=== PATIENT | male | born 1995 | race American Indian/Alaskan Native ===

== ENCOUNTER 2019-04-16 12:21 | Emergency (ER) | payer SELFPAY ==
[2019-04-16 12:24] VITALS: BP 147/97
--- NOTE | 2019-04-16 12:41 | Event Note ---
ED Screening Note ED Screening Note: Mr. Greco has laceration on right arm. unknown tetanus status This initial assessment/diagnostic orders/clinical plan/treatment(s) is/are subject to change based on patients health status, clinical progression and re- assessment by fellow clinical providers in the ED. Further treatment and workup at subsequent clinical providers discretion. Patient/guardian urged not to elope from the ED as their condition may be serious if not clinically assessed and managed. Initial orders include: need laceration repair
--- NOTE | 2019-04-16 19:43 | Emergency Department Report ---
- General Chief Complaint: Extremity Injury, Upper Stated Complaint: RT ARM CUT Time Seen by Provider: 04/16/19 19:10 Source: patient Mode of arrival: Ambulatory Limitations: No Limitations - History of Present Illness Initial Comments: 23-year-old -[place] male presents to the emergency room for right bicep laceration on a fence at approximate 11 AM. Patient reports he needs a tetanus. Patient denies any past medical history currently takes no medications on a daily basis and has no known drug allergies -: This morning Time: 11:00 Location: other (Right bicep) Extremity Location: Right: Arm (Lateral bicep) Place: outdoors Patient Tetanus UTD: No Context: sharp object use Associated Symptoms: none Treatments Prior to Arrival: bandage - Related Data Allergies Allergy/AdvReac Type Severity Reaction Status Date / Time No Known Allergies Allergy Unverified 04/16/19 12:22 ED Review of Systems ROS: Stated complaint: RT ARM CUT Other details as noted in HPI Comment: All other systems reviewed and negative ED Past Medical Hx - Past Medical History Previous Medical History?: No - Surgical History Past Surgical History?: No - Social History Smoking Status: Current Every Day Smoker Substance Use Type: Alcohol, Marijuana ED Physical Exam - General Limitations: No Limitations General appearance: alert, in no apparent distress - Head Head exam: Present: atraumatic, normocephalic - Eye Eye exam: Present: normal appearance, EOMI - ENT ENT exam: Present: mucous membranes moist - Neurological Exam Neurological exam: Present: alert, oriented X3, normal gait - Psychiatric Psychiatric exam: Present: normal affect, normal mood - Expanded Skin Exam Expanded Type of lesion: Present: laceration Distribution of rash: RUE ED Course Vital Signs 04/16/19 12:23 Temperature 98.7 F Pulse Rate 79 Respiratory 16 Rate Blood Pressure 147/97 O2 Sat by Pulse 100 Oximetry - Laceration /Wound Repair Right Upper Arm Wound Location: upper extremity (Right upper arm) Wound Length (cm): 2 Wound's Depth, Shape: superficial Wound Explored: no foreign body removed Irrigated w/ Saline (ccs): 30 Betadine Prep?: Yes Anesthesia: 1% Lidocaine Volume Anesthetic (ccs): 2 Wound Debrided: minimal Suture Size/Type: 4:0 Number of Sutures: 3 Sterile Dressing Applied?: Yes Progress: Patient tolerated well ED Medical Decision Making - Medical Decision Making 23-year-old -[place] male presents to the emergency room for right bicep laceration on a fence at approximate 11 AM. Patient reports he needs a tetanus. Patient denies any past medical history currently takes no medications on a daily basis and has no known drug allergies Critical care attestation.: If time is entered above; I have spent that time in minutes in the direct care of this critically ill patient, excluding procedure time. ED Disposition Clinical Impression: Laceration of arm, right, multiple sites Disposition: TO HOME OR SELFCARE Is pt being admited?: No Does the pt Need Aspirin: No Condition: Stable Instructions: Suture Care (ED), Laceration (ED) Additional Instructions: Return to the emergency room or primary care provider to have sutures removed in 5 to 7 days. You can take Tylenol or ibuprofen as needed for pain management Referrals: PRIMARY CARE, [Primary Care Provider] - 3-5 Days Forms: Work/School Release Form(ED)
[2019-04-16] MEDS ORDERED: TETANUS,DIPH,PERTUSS(ACELL) VACCINE 0.5 ML SYRINGE IM ONE (19:58)
== END 2019-04-16 20:50 | disposition home or self-care (01) ==
LOC: ED 12:21
DX: S46.222A Laceration of muscle, fascia and tendon of other parts of biceps, left arm, initial encounter (principal); F17.200 Nicotine dependence, unspecified, uncomplicated; F12.10 Cannabis abuse, uncomplicated; W45.8XXA Other foreign body or object entering through skin, initial encounter; Y93.89 Activity, other specified; Y92.89 Other specified places as the place of occurrence of the external cause; Y99.8 Other external cause status
CPT/HCPCS: 90471; 90715; 99282